=== PATIENT | female | born 2000 | race Caucasian/White ===

== ENCOUNTER 2019-08-16 15:16 | Emergency (ER) | payer SELFPAY ==
--- NOTE | 2019-08-16 16:13 | ER Document Report ---
ED Medical Screen (RME) - General Stated Complaint: LIP INJURY -DOG BITE Time Seen by Provider: 08/16/19 16:07 Primary Care Provider: BROWN MCDONOUGH MD [Primary Care Provider] - Follow up as needed TRAVEL OUTSIDE OF THE [place] IN LAST 30 DAYS: No - HPI Notes: 08/16/19 16:11 27-year-old female presents emergency room for a dog bite to her right lower lip. Patient's tetanus is up-to-date, dog's rabies vaccinations is up-to-date. Patient states that the dog is hers. They are flying and he accidentally better. Jagged right lower lip laceration, does not extend outside vermilion border. Bleeding is controlled. No other area of injury. Pain is 2 out of 10, throbbing achy. No [id number] medication has been tried. I have greeted and performed a rapid initial assessment of this patient. A comprehensive ED assessment and evaluation of the patient, analysis of test results and completion of the medical decision making process will be conducted by additional ED providers. PHYSICAL EXAMINATION: GENERAL: Well-appearing, well-nourished and in no acute distress. NECK: Normal range of motion CV: s1, s2 regular LUNGS: No respiratory distress SKIN: Warm, Dry, normal turgor, no rashes or lesions noted. Jagged laceration to right lower lip with puncture wound in the center, laceration does not penetrate through other side of the lip - Related Data Allergies/Adverse Reactions: No Known Allergies Allergy (Unverified 06/25/11 19:36) Past Medical History - Immunizations Immunizations up to date: Yes Hx Diphtheria, Pertussis, Tetanus Vaccination: Yes Physical Exam - Vital signs Vitals: Temp Pulse Resp BP Pulse Ox 98.0 F 87 16 136/85 H 100 08/16/19 15:41 08/16/19 15:41 08/16/19 15:41 08/16/19 15:41 08/16/19 15:41 Course - Vital Signs Vital signs: Temp Pulse Resp BP Pulse Ox 98.0 F 87 16 136/85 H 100 08/16/19 15:41 08/16/19 15:41 08/16/19 15:41 08/16/19 15:41 08/16/19 15:41 Doctor's Discharge - Discharge Referrals: BROWN MCDONOUGH MD [Primary Care Provider] - Follow up as needed
[2019-08-16] MEDS ORDERED: LIDOCAINE 1%/EPINEPHRINE INJ 20 ML VIAL INJ ONE (17:40)
--- NOTE | 2019-08-16 17:42 | ER Document Report ---
ED Medical Screen (RME) - General Chief Complaint: Dog Bite Stated Complaint: LIP INJURY -DOG BITE Time Seen by Provider: 08/16/19 16:07 Primary Care Provider: BROWN MCDONOUGH MD [Primary Care Provider] - Follow up as needed Notes: Patient is a 19-year-old female who presents to the emergency department with a dog bite to her right lower lip. Patient states that she is up-to-date on her vaccinations. She is up-to-date on her tetanus vaccine. The dog is her dog. He is up-to-date on the dog is up-to-date on their vaccinations and has received the rabies vaccine. Patient was playing with the dog and that is when she got bit. This happened shortly prior to arrival. TRAVEL OUTSIDE OF THE [place] IN LAST 30 DAYS: No - Related Data Allergies/Adverse Reactions: No Known Allergies Allergy (Unverified 06/25/11 19:36) Home Medications: denies Past Medical History - Social History Chew tobacco use (# tins/day): No Frequency of alcohol use: None Drug Abuse: None - Immunizations Immunizations up to date: Yes Hx Diphtheria, Pertussis, Tetanus Vaccination: Yes Physical Exam - Vital signs Vitals: Temp Pulse Resp BP Pulse Ox 98.0 F 87 16 136/85 H 100 08/16/19 15:41 08/16/19 15:41 08/16/19 15:41 08/16/19 15:41 08/16/19 15:41 Course - Vital Signs Vital signs: Temp Pulse Resp BP Pulse Ox 98.0 F 87 16 136/85 H 100 08/16/19 15:41 08/16/19 15:41 08/16/19 15:41 08/16/19 15:41 08/16/19 15:41 Doctor's Discharge - Discharge Referrals: BROWN MCDONOUGH MD [Primary Care Provider] - Follow up as needed
--- NOTE | 2019-08-16 19:43 | ER Document Report ---
ED Animal Bite - General Chief Complaint: Dog Bite Stated Complaint: LIP INJURY -DOG BITE Time Seen by Provider: 08/16/19 16:07 Primary Care Provider: BROWN MCDONOUGH MD [Primary Care Provider] - 08/20/19 Notes: Patient is a 19-year-old female who presents to the emergency department with a dog bite to her right lower lip. Patient states that she is up-to-date on her vaccinations. She is up-to-date on her tetanus vaccine. The dog is her dog. He is up-to-date on the dog is up-to-date on their vaccinations and has received the rabies vaccine. Patient was playing with the dog and that is when she got bit. This happened shortly prior to arrival. TRAVEL OUTSIDE OF THE [place] IN LAST 30 DAYS: No - Related Data Allergies/Adverse Reactions: No Known Allergies Allergy (Unverified 06/25/11 19:36) Home Medications: denies Past Medical History - Social History Smoking Status: Never Smoker Chew tobacco use (# tins/day): No Frequency of alcohol use: None Drug Abuse: None Family History: Reviewed & Not Pertinent Patient has suicidal ideation: No Patient has homicidal ideation: No - Immunizations Immunizations up to date: Yes Hx Diphtheria, Pertussis, Tetanus Vaccination: Yes Review of Systems - Review of Systems Notes: REVIEW OF SYSTEMS: CONSTITUTIONAL : Denies recent illness. Denies recent unintentional weight loss. Denies fever, chills, or sweats. EENT: See HPI. CARDIOVASCULAR: Denies chest pain. RESPIRATORY: Denies shortness of breath, cough, congestion, difficulty breathing, or wheezing. GASTROINTESTINAL: Denies nausea, vomiting, and diarrhea. Denies abdominal pain. Denies constipation. GENITOURINARY: Denies difficulty urinating, burning, blood in urine, urgency or frequency. MUSCULOSKELETAL: Denies neck and back pain. Denies joint pain or swelling. SKIN: See HPI. HEMATOLOGIC : Denies easy bruising or bleeding. LYMPHATIC: Denies swollen, painful, enlarged glands. NEUROLOGICAL: Denies no numbness or tingling denies weakness. Denies headache. Denies altered mental status. Denies alteration in speech. PSYCHIATRIC: Denies stress, anxiety, alteration in sleep patterns, or depression. All other systems reviewed and negative. Physical Exam - Vital signs Vitals: Temp Pulse Resp BP Pulse Ox 98.0 F 87 16 136/85 H 100 08/16/19 15:41 08/16/19 15:41 08/16/19 15:41 08/16/19 15:41 08/16/19 15:41 - Notes Notes: PHYSICAL EXAMINATION: GENERAL: Appears well, healthy, well-nourished, no acute distress. HEAD: Normocephalic, atraumatic. EYES: PERRL, conjunctiva normal, all extraocular movements intact, sclera nonicteric ENT: Moist mucous membranes. Irregular laceration noted to right lower lip. NECK: Supple, no noticeable swelling, redness, rash. Normal range of motion. LUNGS: Equal breath sounds bilaterally and clear to auscultation. No wheezes rales or rhonchi. CARDIOVASCULAR: S1-S2, regular rate, regular rhythm. Radial pulses 2+, normal. ABDOMEN: Normoactive bowel sounds. Soft, nontender, no guarding, no rebound tenderness, and no masses palpated. EXTREMITIES: Normal strength and range of motion, no pitting or edema. No cyanosis. NEUROLOGICAL: Moves all extremities upon command. Strength 5/5 in all extremities. PSYCH: Normal mood, normal affect. SKIN: Warm, dry. Normal skin turgor. Course - Re-evaluation Re-evalutation: 08/16/19 Lip laceration to right lower lip was approximated and left slightly open for drainage. Patient will be started on Augmentin. She will follow-up with her primary care provider to have her stitches removed. She is in agreement with this plan. Follow-up precautions were given. Verbal discharge instructions were given to the patient. They verbalized understanding. They are stable for discharge. - Vital Signs Vital signs: Temp Pulse Resp BP Pulse Ox 98.2 F 69 20 124/78 100 08/16/19 19:56 08/16/19 19:56 08/16/19 19:56 08/16/19 19:56 08/16/19 19:56 Procedures - Laceration/Wound Repair Right lower lip Wound length (cm): 1 Wound's Depth, Shape: Superficial, Irregular Laceration pre-procedure: Sterile PPE donned, Sterile drapes applied, Shur-Clens applied Anesthetic type: 1% Lidocaine w/epi Volume Anesthetic (mLs): 4 Wound explored: Clean, No foreign body removed Irrigated w/ Saline (mLs): 50 Wound Repaired With: Sutures Suture Size/Type: 5:0, Nylon Number of Sutures: 1 Post-procedure wound care: Sterile dressing applied Post-procedure NV exam normal: Yes Complications: No Adult Head Front/Back picture: 1 - irregular laceration from dog bite Discharge - Discharge Clinical Impression: Dog bite Qualifiers: Encounter type: initial encounter Qualified Code(s): W54.0XXA - Bitten by dog, initial encounter Lip laceration Qualifiers: Encounter type: initial encounter Qualified Code(s): S01.511A - Laceration without foreign body of lip, initial encounter Condition: Stable Disposition: HOME, SELF-CARE Instructions: Laceration Care ([facility]), Prophylactic Antibiotic ([facility]) Additional Instructions: Please monitor very closely for any signs of infection from your dog bite including spreading redness from the area, pus from the wound, or worsening pain. Clean the area twice daily with soap and water. Please take all the antibiotics that you were prescribed until they are gone. Follow-up with your primary care physician as needed. You are also being sent with a prescription for peridex mouthwash. Please use this as directed. Prescriptions: Amoxicillin/Potassium Clav [Augmentin 875-125 Tablet] 1 tab PO BID 7 Days #14 tab Chlorhexidine Gluconate [Peridex] 15 ml MM BID 7 Days #1 bottle Forms: Return to Work Referrals: BROWN MCDONOUGH MD [Primary Care Provider] - 08/20/19
[2019-08-16 19:57] VITALS: BP 124/78
== END 2019-08-16 19:58 | disposition home or self-care (01) ==
LOC: ER 15:16
DX: S01.551A Open bite of lip, initial encounter (principal); W54.0XXA Bitten by dog, initial encounter
CPT/HCPCS: 99283; 12011; J3490